=== PATIENT | male | born 1985 | race African-American/Black ===

== ENCOUNTER 2021-12-18 01:41 | Emergency (ER) | payer MEDICAID, OTHER ==
[~2021-12-18] VITALS: Ht 170.2 cm; Wt 68.5 kg
[2021-12-18] MEDS ORDERED: THIAMINE HCL 100 MG TABLET ONE (02:56)
[2021-12-18] MEDS ORDERED: THIAMINE HCL 100 MG TABLET PO ONE (03:00)
[2021-12-18 03:04] LABS: HEMATOCRIT 42.9 % (36.7-47.1); MEAN CORPUSCULAR HEMOGLOBIN 32.5 uug (23.8-33.4); MEAN CORPUSCULAR VOLUME 91.6 fL (73.0-96.2); PLATELET COUNT (AUTO) 325 K/uL (152-348)
[2021-12-18 03:09] LABS: MAGNESIUM 1.9 mg/dL (1.8-2.4)
[2021-12-18 03:10] LABS: CREATININE 0.9 mg/dL (0.6-1.3); POTASSIUM 3.7 mmol/L (3.5-5.1)
[2021-12-18 03:15] LABS: BILIRUBIN,DIRECT 0.2 mg/dL (0.0-0.2); BILIRUBIN,TOTAL 0.7 mg/dL (0.2-1.0); ETHANOL < 3 MG/DL (0-0); TOTAL PROTEIN, SERUM 7.4 g/dL (6.4-8.2)
[2021-12-18] MEDS ORDERED: PROC10TA29 PO (03:27)
[2021-12-18] MEDS ORDERED: NALT380S2 IM (03:45)
--- NOTE | 2021-12-18 04:00 | NUR ---
Patient given written and verbal discharge instructions. Patient verbalizes understanding of instructions. Patient is ambulatory with steady gait. Refuses offer of senior care placement. Patient given list of available shelters in surrounding area.
[2021-12-18 04:01] VITALS: BP 123/47
== END 2021-12-18 04:02 | disposition home or self-care (01) ==
LOC: ER 01:48
DX: F10.10 Alcohol abuse, uncomplicated (principal); Y90.0 Blood alcohol level of less than 20 mg/100 ml; K22.6 Gastro-esophageal laceration-hemorrhage syndrome; Z59.00 Homelessness unspecified; F19.10 Other psychoactive substance abuse, uncomplicated
CPT/HCPCS: 36415; 83690; 83735; 85025; A4663; G0480

== ENCOUNTER 2021-12-20 22:45 | Emergency (ER) | payer MEDICAID, OTHER ==
[~2021-12-20] VITALS: Ht 172.7 cm; Wt 70.3 kg
[~2021-12-20 22:45] MED LIST: NALT380S2 IM; PROC10TA29 PO
--- NOTE | 2021-12-21 02:30 | NUR ---
Dr. Sheriff evaluating pt at bedside.
--- NOTE | 2021-12-21 06:01 | NUR ---
Pt resting in bed comfortably, no s/s of distress at this time.
--- NOTE | 2021-12-21 08:24 | NUR ---
Called social sciences professor to evaluate patient.
--- NOTE | 2021-12-21 08:32 | NUR ---
casino gaming workerGris, at the bedside.
--- NOTE | 2021-12-21 09:07 | NUR ---
Urine sent to lab.
[2021-12-21 09:13] LABS: HEMATOCRIT 43.9 % (36.7-47.1); MEAN CORPUSCULAR HEMOGLOBIN 33.1 uug (23.8-33.4); MEAN CORPUSCULAR VOLUME 91.9 fL (73.0-96.2); PLATELET COUNT (AUTO) 339 K/uL (152-348)
[2021-12-21 09:20] LABS: CARBON DIOXIDE 33 mmol/L (21-32); CHLORIDE 102 mmol/L (98-107); CREATININE 0.8 mg/dL (0.6-1.3); GLUCOSE 93 mg/dL (74-106); UREA NITROGEN, BLOOD 10 mg/dL (7-18)
[2021-12-21 09:26] LABS: ACETAMINOPHEN < 2.0 ug/mL (10-30); ALANINE AMINOTRANSFERASE 29 U/L (16-63); ALKALINE PHOSPHATASE 66 U/L (50-136); ASPARTATE AMINOTRANSFERASE 30 U/L (15-37); BILIRUBIN,DIRECT 0.3 mg/dL (0.0-0.2); BILIRUBIN,TOTAL 0.7 mg/dL (0.2-1.0); ETHANOL < 3 MG/DL (0-0); TOTAL PROTEIN, SERUM 7.6 g/dL (6.4-8.2)
[2021-12-21 09:42] LABS: *AMPHETAMINE, URINE POSITIVE (NEGATIVE); *CANNABINOID, URINE POSITIVE (NEGATIVE); *COCCAINE, URINE NEGATIVE (NEGATIVE); *OPIATE, URINE NEGATIVE (NEGATIVE); *PHENCYCLIDINE SCREEN,URINE NEGATIVE (NEGATIVE)
[2021-12-21 10:44] VITALS: BP 126/93
--- NOTE | 2021-12-21 10:45 | NUR ---
Patient discharged to home in stable condition. Written and verbal after care instructions given. Patient verbalizes understanding of instructions. Stressed follow up or return to ER for worsening s/s.
--- NOTE | 2021-12-21 14:17 | NUR ---
Social work consult was requested for a homeless patient in the emergency room for resources. Patient is 36-year-old male admitted to the hospital for alcohol abuse. Patient is alert and oriented X4. Patient presents with anxious mood and congruent affect. Patient presents with poor judgement and insight. Patient states his primary contact is his mother, Josette ([phone]) and she is currently living in [place], [place]. Patient stated he has been homeless since August and has been living in [place]. TAVARES gave the patient resources for [facility] [place] [address] [place] [address] ([phone]) and [facility] [address] [facility] [address] ([phone]). TAVARES gave resources for [employer] [address] [facility] [address]. Resources were placed in the chart. Homeless waiver was signed and given to the patient and a copy was placed in the chart. Patient states that he is currently working for [employer]. Patient states that he has a history of alcohol abuse. The toxicology report is positive for amphetamine and cannabinoids. TAVARES gave the patient referrals and resources for substance use from [facility] [address] [facility] [address] ([phone]), [facility] [address] [facility] [address] ([phone]), and [facility] [address] [place] [address] ([phone]). Resources were placed in the chart. Patient states he has a history of depression. Patient states he has a history of passive suicidal ideation. Patient denies homicidal ideation. TAVARES provided resources for [facility] Mental [facility] [address] [place] [address] ([phone]) and were placed in the cart. TAVARES provided emotional support and validation when speaking with the patient. Patient states he will discharge to a local alf. TAVARES provided the patient a TAP card for discharge
== END 2021-12-21 10:46 | disposition home or self-care (01) ==
LOC: ER 22:47
DX: F15.10 Other stimulant abuse, uncomplicated (principal); Z59.00 Homelessness unspecified; F10.20 Alcohol dependence, uncomplicated
CPT/HCPCS: 36415; 85025; A4663; G0480

== ENCOUNTER 2021-12-25 17:45 | Emergency (ER) | payer MEDICAID ==
[~2021-12-25] VITALS: Ht 165.1 cm; Wt 79.4 kg
[2021-12-26 05:35] LABS: HEMATOCRIT 41.2 % (36.7-47.1); MEAN CORPUSCULAR HEMOGLOBIN 32.5 uug (23.8-33.4); MEAN CORPUSCULAR VOLUME 91.2 fL (73.0-96.2); PLATELET COUNT (AUTO) 300 K/uL (152-348)
[2021-12-26 05:43] LABS: CARBON DIOXIDE 30 mmol/L (21-32); CHLORIDE 103 mmol/L (98-107); CREATININE 0.8 mg/dL (0.6-1.3); GLUCOSE 92 mg/dL (74-106); POTASSIUM 3.9 mmol/L (3.5-5.1); UREA NITROGEN, BLOOD 11 mg/dL (7-18)
[2021-12-26 05:57] LABS: ALANINE AMINOTRANSFERASE 36 U/L (16-63); ALKALINE PHOSPHATASE 68 U/L (50-136); ASPARTATE AMINOTRANSFERASE 64 U/L (15-37); BILIRUBIN,DIRECT 0.4 mg/dL (0.0-0.2); TOTAL PROTEIN, SERUM 7.1 g/dL (6.4-8.2)
[2021-12-26 05:59] LABS: ACETAMINOPHEN < 2.0 ug/mL (10-30)
[2021-12-26 05:59] LABS: *AMPHETAMINE, URINE NEGATIVE (NEGATIVE); *CANNABINOID, URINE POSITIVE (NEGATIVE); *COCCAINE, URINE NEGATIVE (NEGATIVE); *OPIATE, URINE NEGATIVE (NEGATIVE); *PHENCYCLIDINE SCREEN,URINE NEGATIVE (NEGATIVE)
[2021-12-26 06:12] LABS: ETHANOL < 3 MG/DL (0-0)
--- NOTE | 2021-12-26 15:54 | NUR ---
Social work consult was requested for a homeless patient in the emergency room for resources. Patient is 36-year-old black male. Patient is alert and oriented X4. Patient presents with euthymic mood and full range of affect. Patient presents with poor judgement and insight. Patient states his primary contact is his mother, Josette ([phone]) and she is currently living in [place], [place]. Patient stated he has been homeless since August and has been living in [place]. TAVARES provided the patient resources and gave him the information for [facility] [place] [address] [place] [address] ([phone]) and [facility] [address] [facility] [address] ([phone]). TAVARES gave resources for [facility] [address] [facility] [address]. Resources were placed in the chart. Homeless waiver was signed and given to the patient and a copy was placed in the chart. Patient states that he is currently working for [employer]. TAVARES provided the patient employment resources for [employer] [facility] [facility] [address] [facility], [address], [employer] [address] [facility], [address] and [facility] [address] [facility] [address], [place], [address]. Patient states that he has a history of alcohol abuse. TAVARES provided the patient resources and referrals for substance use from [facility] [address] [facility] [address] ([phone]), [facility] [address] [facility] [address] ([phone]), and [facility] [address] [facility] [address] ([phone]). The toxicology screen is positive for cannabinoids. Resources were placed in the chart. Patient states he has a history of depression. Patient denies current suicidal or homicidal ideation. TAVARES provided resources for [facility] [address] [place] [address] ([phone]) and were placed in the chart. SW provided emotional support and validation when speaking with the patient. Patient states he was going to call [address] [address] ([phone]). Patient states he will discharge to a local long term or treatment center. SW provided the patient a TAP card for discharge.
== END 2021-12-26 09:19 | disposition home or self-care (01) ==
LOC: ER 17:47
DX: R45.850 Homicidal ideations (principal); F10.10 Alcohol abuse, uncomplicated; Y90.0 Blood alcohol level of less than 20 mg/100 ml; Z59.00 Homelessness unspecified; F12.10 Cannabis abuse, uncomplicated; Z20.822 Contact with and (suspected) exposure to COVID-19
CPT/HCPCS: 36415; 85025; A4663; G0480

== ENCOUNTER 2022-01-02 17:50 | Emergency (ER) | payer OTHER ==
[~2022-01-02] VITALS: Ht 170.2 cm; Wt 70.3 kg
[2022-01-02] MEDS ORDERED: LORAZEPAM 0.5 MG TABLET PO ONE (18:15)
--- NOTE | 2022-01-02 18:32 | NUR ---
Pt changed into patient gown. Belongings gathered and labeled. Pt denies auditory and visual hallucinations, endorses possible SI (no plan) and HI (nothing specific).
[2022-01-02 18:38] LABS: HEMATOCRIT 42.1 % (36.7-47.1); MEAN CORPUSCULAR HEMOGLOBIN 33.2 uug (23.8-33.4); MEAN CORPUSCULAR VOLUME 92.4 fL (73.0-96.2); PLATELET COUNT (AUTO) 269 K/uL (152-348)
[2022-01-02 18:46] LABS: CARBON DIOXIDE 29 mmol/L (21-32); CHLORIDE 96 mmol/L (98-107); CREATININE 0.9 mg/dL (0.6-1.3); GLUCOSE 112 mg/dL (74-106); POTASSIUM 3.9 mmol/L (3.5-5.1); UREA NITROGEN, BLOOD 13 mg/dL (7-18)
[2022-01-02 18:52] LABS: ALANINE AMINOTRANSFERASE 36 U/L (16-63); ALKALINE PHOSPHATASE 66 U/L (50-136); ASPARTATE AMINOTRANSFERASE 37 U/L (15-37); BILIRUBIN,DIRECT 0.2 mg/dL (0.0-0.2); BILIRUBIN,TOTAL 0.5 mg/dL (0.2-1.0); TOTAL PROTEIN, SERUM 7.8 g/dL (6.4-8.2)
[2022-01-02 18:53] LABS: ACETAMINOPHEN < 2.0 ug/mL (10-30)
[2022-01-02 18:54] LABS: ETHANOL 4 MG/DL (0-0)
[2022-01-02] MEDS ORDERED: LORAZEPAM 0.5 MG TABLET ONE (19:09)
[2022-01-02 20:41] LABS: *BILIRUBIN,URIN NEGATIVE (NEGATIVE); *BLOOD, URINE NEGATIVE (NEGATIVE); *CLARITY,URINE CLEAR (CLEAR); *COLOR,URINE YELLOW (YELLOW); *KETONES,URINE NEGATIVE (NEGATIVE); *UROBILINOGEN,URINE 0.2 E.U./dl (NORMAL); LEUKOCYTE ESTERASE ,URINE NEGATIVE (NEGATIVE); NITRITE, URINE NEGATIVE (NEGATIVE); PH,URINE 6.5 (5.0-8.0); UGLUCOSE NEGATIVE (NEGATIVE)
--- NOTE | 2022-01-02 21:00 | NUR ---
Patient ate 100% of meal tray provided with snacks.
[2022-01-02 21:17] LABS: *AMPHETAMINE, URINE NEGATIVE (NEGATIVE); *CANNABINOID, URINE POSITIVE (NEGATIVE); *COCCAINE, URINE NEGATIVE (NEGATIVE); *OPIATE, URINE NEGATIVE (NEGATIVE); *PHENCYCLIDINE SCREEN,URINE NEGATIVE (NEGATIVE)
--- NOTE | 2022-01-02 22:39 | NUR ---
Medically cleared by DR Hernandes. Called Wilder Bauman from PET TEAM to eval patient. ETA is 40mins.
--- NOTE | 2022-01-02 23:10 | NUR ---
Wilder from PET TEAM here to eval patient.
--- NOTE | 2022-01-02 23:50 | NUR ---
Faxed facesheet and clinicals to [facility] for request for voluntary admission. Faxe # . .
--- NOTE | 2022-01-03 05:06 | NUR ---
Mona from [facility] called back with transfer info. [facility]. Accepting MD is Dr Mckeon, call for report number is . Mona states report will be accepted at 0900 today and can send patient at noon today to [facility].
--- NOTE | 2022-01-03 08:15 | NUR ---
Pt resting in bed, no complaints, no distress noted. Pt given breakfast tray.
--- NOTE | 2022-01-03 09:32 | NUR ---
Called report to OBDULIO Castellanos. Transport ETA: [phone] via [facility]. Jasmin gandhi.
--- NOTE | 2022-01-03 09:51 | NUR ---
Pt. sleeping in bed, no distress noted.
--- NOTE | 2022-01-03 10:37 | NUR ---
Gave rn internal medicine pt chart and report. Gave crew pt belongings. Pt transported to [facility] [place].
== END 2022-01-03 10:42 ==
LOC: ER 17:53
DX: R45.851 Suicidal ideations (principal); F10.10 Alcohol abuse, uncomplicated; Y90.0 Blood alcohol level of less than 20 mg/100 ml; Z20.822 Contact with and (suspected) exposure to COVID-19; F20.9 Schizophrenia, unspecified; F19.10 Other psychoactive substance abuse, uncomplicated
CPT/HCPCS: 36415; 85025; A4663; G0480

== ENCOUNTER 2022-02-22 22:46 | Emergency (ER) | payer MEDICAID ==
[~2022-02-22] VITALS: Ht 170.2 cm; Wt 68.0 kg
[~2022-02-22 22:46] MED LIST changes: -PROC10TA29 PO
--- NOTE | 2022-02-23 00:30 | NUR ---
Jr jackson in [facility] - 02/23/22 at 0253 by [id number] PATIENT WAS JUST CALLED TO BE TRIAGED AT THIS TIME DUE TO NO BEDS AVAILABLE IN THE ER AND HIGH ACUITY IN THE ER, BUT PATIENT WAS NOT PRESENT IN THE WAITING ROOM OR OUTSIDE OF ER.
--- NOTE | 2022-02-23 01:20 | NUR ---
PATIENT WAS CALLED TO BE TRIAGED BUT WAS NOT PRESENT IN THE WAITING ROOM OR OUTSIDE OF ER. PATIENT WAS NOT TRIAGED OR SEEN BY ERMD.
--- NOTE | 2022-02-23 07:51 | NUR ---
PATIENT STATES HE "WANTS HELP FOR MY ALCOHOLISM AND LIFE SITUATION" DENIES SUICIDAL IDEATION OR THOUGHTS. STATES HE IS "READY" FOR REHAB.
--- NOTE | 2022-02-23 08:16 | NUR ---
ELIGIO, TAVARES, HERE FOR EVAL.
--- NOTE | 2022-02-23 08:58 | NUR ---
Social Work consult was requested for a patient in the emergency room for mental health, homeless and substance abuse resources. Patient is a 36-year-old black male. Patient presents with euthymic mood and a full range of affect. Patient presents with poor insight and judgement. Patient states he does not have a primary contact. Patient states he is unemployed. Patient states he is currently homeless, and TAVARES provided the patient with homeless resources for [facility] [place] [address] [place] [address] ([phone]) and [facility] [address] [facility] [address] ([phone]). TAVARES gave resources for [address] [address]. Homeless waiver was signed and was placed in the chart. Patient states he has a history of alcohol abuse. There is no toxicology report. TAVARES provided the patient with substance abuse resources for [address] [address] ([phone]), [facility] [address] [facility] [address] ([phone]), and [address] [address] ([phone]). Patient appeared motivated for treatment and stated he was open to going to [facility]. TAVARES provided the patient with a TAP card and directions to [facility]. Patient states he has a history of depression and anxiety. Patient denies current suicidal or homicidal ideation. Patient states his plan for discharge is to go to [address] [address] ([phone]).
--- NOTE | 2022-02-23 09:15 | NUR ---
patient ate breakfast. he ambulates with steady gait. He has his TAP card and directions to [facility] which is where he is going now .
[2022-02-23 09:18] VITALS: BP 119/72
== END 2022-02-23 09:19 | disposition home or self-care (01) ==
LOC: ER 22:46
DX: F10.10 Alcohol abuse, uncomplicated (principal); F32.A Depression, unspecified; F41.9 Anxiety disorder, unspecified; F19.10 Other psychoactive substance abuse, uncomplicated; F20.9 Schizophrenia, unspecified
CPT/HCPCS: A4663

== ENCOUNTER 2022-02-23 23:40 | Emergency (ER) | payer MEDICAID ==
[~2022-02-23] VITALS: Ht 170.2 cm; Wt 68.0 kg
--- NOTE | 2022-02-24 06:32 | NUR ---
Dr. Hernandez at bedside for MSE.
--- NOTE | 2022-02-24 06:42 | NUR ---
Patient given written and verbal discharge instructions. Patient verbalizes understanding of instructions. Patient is ambulatory with steady gait. Refuses offer of [facility] placement. Patient given list of available shelters in surrounding area.
[2022-02-24 06:49] VITALS: BP 130/74
== END 2022-02-24 06:49 | disposition home or self-care (01) ==
LOC: ER 23:40
DX: Z00.00 Encounter for general adult medical examination without abnormal findings (principal); Z59.00 Homelessness unspecified; F10.10 Alcohol abuse, uncomplicated; F12.10 Cannabis abuse, uncomplicated; F20.9 Schizophrenia, unspecified
CPT/HCPCS: A4663

== ENCOUNTER 2022-03-15 22:01 | Emergency (ER) | payer MEDICAID ==
[~2022-03-15] VITALS: Ht 170.2 cm; Wt 79.4 kg
--- NOTE | 2022-03-15 22:25 | NUR ---
Patient walked to the ER with steady gait. NAD noted
[2022-03-15 23:25] LABS: HEMATOCRIT 38.8 % (36.7-47.1); MEAN CORPUSCULAR HEMOGLOBIN 33.9 uug (23.8-33.4); MEAN CORPUSCULAR VOLUME 94.4 fL (73.0-96.2); PLATELET COUNT (AUTO) 343 K/uL (152-348)
[2022-03-15 23:33] LABS: POTASSIUM 3.4 mmol/L (3.5-5.1)
[2022-03-15 23:39] LABS: BILIRUBIN,DIRECT 0.3 mg/dL (0.0-0.2); BILIRUBIN,TOTAL 0.6 mg/dL (0.2-1.0); TOTAL PROTEIN, SERUM 6.9 g/dL (6.4-8.2)
[2022-03-15] MEDS ORDERED: POTASSIUM BICARBONATE/CIT AC 25 MEQ TABLET.EFF ONE (23:57)
[2022-03-15] MEDS ORDERED: THIAMINE HCL 100 MG TABLET ONE (23:57)
[2022-03-16] MEDS ORDERED: POTASSIUM BICARBONATE/CIT AC 25 MEQ TABLET.EFF PO ONE
[2022-03-16] MEDS ORDERED: THIAMINE HCL 100 MG TABLET PO ONE
[2022-03-16] MEDS ORDERED: CYANOCOBALAMIN 1000 MCG/ML VIAL IM ONE (00:15)
[2022-03-16] MEDS ORDERED: POTA10TA21 PO (00:34)
[2022-03-16] MEDS ORDERED: CYAN-10 IJ (00:34)
[2022-03-16] MEDS ORDERED: SYRI-29 MC (00:37)
[2022-03-16] MEDS ORDERED: CYANOCOBALAMIN 1000 MCG/ML VIAL ONE (00:44)
--- NOTE | 2022-03-16 00:48 | NUR ---
Patient given written and verbal discharge instructions. Patient verbalizes understanding of instructions. Patient is ambulatory with steady gait. Refuses offer of senior living placement. Patient given list of available shelters in surrounding area. Patient is a/ox4, NAD noted. Patient is able to walk with steady gait
[2022-03-16 00:57] VITALS: BP 115/67
== END 2022-03-16 00:57 | disposition home or self-care (01) ==
LOC: ER 22:01
DX: E53.8 Deficiency of other specified B group vitamins (principal); G63 Polyneuropathy in diseases classified elsewhere; E87.6 Hypokalemia; F10.20 Alcohol dependence, uncomplicated; Z59.00 Homelessness unspecified; F19.10 Other psychoactive substance abuse, uncomplicated; F20.9 Schizophrenia, unspecified
CPT/HCPCS: 80076; 80048; 82607; 85025; 36415; 99283; 96372; J3420; A4663

== ENCOUNTER 2022-05-16 04:10 | Emergency (ER) | payer MEDICAID ==
[~2022-05-16] VITALS: Ht 170.2 cm; Wt 79.4 kg
[~2022-05-16 04:10] MED LIST changes: +CYAN-10 IJ; +POTA10TA21 PO; +SYRI-29 MC
--- NOTE | 2022-05-16 06:40 | NUR ---
Dr Hernandes into eval patient.
[2022-05-16] MEDS ORDERED: KETOROLAC TROMETHAMINE 15 MG INJ IM ONE (07:00)
[2022-05-16] MEDS ORDERED: IBUP-1955 PO (07:04)
[2022-05-16] MEDS ORDERED: KETOROLAC TROMETHAMINE 15 MG INJ ONE (07:08)
--- NOTE | 2022-05-16 08:30 | NUR ---
Social Work consult was requested for a patient in the emergency room for homeless resources. Patient is a 36-year-old black male. Patient presents with anxious mood and congruent affect. Patient presents with poor insight and judgement. Patient states he does not have a primary contact. 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 Patient states he is currently homeless, and TAVARES provided the patient with homeless resources for [facility] [place] [address] [place] [address] ([phone]) and [facility] [address] [facility] [address] ([phone]). TAVARES gave resources for [facility] [address] [place] [address]. Homeless waiver was signed and was placed in the chart. Patient states he has a history of alcohol abuse. There is no toxicology report. TAVARES provided the patient with substance abuse resources for [facility] [address] [facility] [place] [address] ([phone]), [facility] [address] [facility] [address] ([phone]), and [facility] [address] [place] [address] ([phone]). Patient appeared unmotivated for treatment. Patient states he has a history of depression and anxiety, and TAVARES provided the patient with the mental health resource for [facility] Mental [facility] [address] [place] [address] ([phone]). Patient denies current suicidal or homicidal ideation. TAVARES provided the patient with a TAP card and patient states he will follow up with making his own arrangements for a living arrangement using the resources provided.
--- NOTE | 2022-05-16 08:50 | NUR ---
Patient discharged to home in stable condition. Written and verbal after care instructions given. Patient verbalizes understanding of instructions. Stressed follow up or return to ER for worsening s/s. Pt was seen by Gris (criminal justice social worker) prior to d/c and given referrals and a TAP card for the bus. Pt ambulated out of ER with steady gait.
== END 2022-05-16 08:53 | disposition home or self-care (01) ==
LOC: ER 04:16
DX: S89.91XA Unspecified injury of right lower leg, initial encounter (principal); X58.XXXA Exposure to other specified factors, initial encounter; Y92.89 Other specified places as the place of occurrence of the external cause; Z59.00 Homelessness unspecified; F20.9 Schizophrenia, unspecified; F41.9 Anxiety disorder, unspecified; F32.A Depression, unspecified
CPT/HCPCS: 99283; 73564; 96372; J1885; A4663

== ENCOUNTER 2022-05-17 21:27 | Emergency (ER) | payer MEDICAID ==
[~2022-05-17] VITALS: Ht 170.2 cm; Wt 72.6 kg
[~2022-05-17 21:27] MED LIST changes: +IBUP-1955 PO
[2022-05-18 00:36] LABS: *BILIRUBIN,URIN NEGATIVE (NEGATIVE); *BLOOD, URINE NEGATIVE (NEGATIVE); *CLARITY,URINE CLEAR (CLEAR); *COLOR,URINE LIGHT YELLOW (YELLOW); *KETONES,URINE NEGATIVE (NEGATIVE); *UROBILINOGEN,URINE 0.2 E.U./dl (NORMAL); LEUKOCYTE ESTERASE ,URINE NEGATIVE (NEGATIVE); NITRITE, URINE NEGATIVE (NEGATIVE); PH,URINE 5.5 (5.0-8.0); UGLUCOSE NEGATIVE (NEGATIVE)
[2022-05-18 00:42] LABS: HEMATOCRIT 37.4 % (36.7-47.1); MEAN CORPUSCULAR HEMOGLOBIN 33.8 uug (23.8-33.4); MEAN CORPUSCULAR VOLUME 94.3 fL (73.0-96.2); PLATELET COUNT (AUTO) 342 K/uL (152-348)
[2022-05-18 00:51] LABS: CARBON DIOXIDE 29 mmol/L (21-32); CHLORIDE 104 mmol/L (98-107); CREATININE 0.8 mg/dL (0.6-1.3); GLUCOSE 162 mg/dL (74-106); POTASSIUM 3.7 mmol/L (3.5-5.1); UREA NITROGEN, BLOOD 8 mg/dL (7-18)
[2022-05-18 00:53] LABS: ETHANOL 150 MG/DL (0-0)
[2022-05-18 00:58] LABS: ALANINE AMINOTRANSFERASE 27 U/L (16-63); ALKALINE PHOSPHATASE 88 U/L (50-136); ASPARTATE AMINOTRANSFERASE 21 U/L (15-37); BILIRUBIN,DIRECT 0.2 mg/dL (0.0-0.2); BILIRUBIN,TOTAL 0.3 mg/dL (0.2-1.0)
[2022-05-18 00:59] LABS: ACETAMINOPHEN < 10.0 ug/mL (10-30)
[2022-05-18 01:17] LABS: *AMPHETAMINE, URINE NEGATIVE (NEGATIVE); *CANNABINOID, URINE POSITIVE (NEGATIVE); *COCCAINE, URINE NEGATIVE (NEGATIVE); *OPIATE, URINE NEGATIVE (NEGATIVE); *PHENCYCLIDINE SCREEN,URINE NEGATIVE (NEGATIVE)
--- NOTE | 2022-05-18 01:45 | NUR ---
Medically cleared by Dr Hernandes.
--- NOTE | 2022-05-18 03:00 | NUR ---
Called [phone] and spoke to intake who requested facesheet and clinical to be faxed to .
--- NOTE | 2022-05-18 04:00 | NUR ---
Patient sleeping on gurny with no distress noted.
--- NOTE | 2022-05-18 05:04 | NUR ---
Called [facility] and was informed by Mona who states they are not able to accept patient because they are not contracted with patient's insurance.
--- NOTE | 2022-05-18 07:45 | NUR ---
Received patient sleeping in room 5 with no s/s of distress noted at this time.
--- NOTE | 2022-05-18 10:04 | NUR ---
Social Work consult was requested for a patient in the emergency room for homeless and mental health resources. Patient is a 36-year-old black male. Patient presents with anxious mood and congruent affect. Patient appears lethargic. Patient states he does not have a primary contact. Patient states he is currently homeless, and TAVARES provided the patient with homeless resources for [facility] [place] [address] [place] [address] ([phone]) and [facility] [address] [facility] [address] ([phone]). TAVARES gave resources for [facility] [address] [facility] [address]. Homeless waiver was signed and placed in the chart. Patient states he has a history of alcohol abuse. The patients alcohol level was 150 and the toxicology report was positive for cannabinoids. TAVARES provided the patient with substance abuse resources for [facility] [address] [facility] [address] ([phone]), [facility] [address] [facility] [address] ([phone]), and [facility] [address] [facility] [address] ([phone]). Patient appeared unmotivated for treatment. Patient states he has a history of depression and anxiety, and TAVARES provided the patient with the mental health resource for [facility] [address] [facility] [place] [address] ([phone]). Patient denies current suicidal or homicidal ideation. TAVARES provided the patient with a TAP card and patient states he will follow up with making his own arrangements for a living arrangement using the resources provided.
--- NOTE | 2022-05-18 10:10 | NUR ---
Patient discharged in stable condition. Written and verbal after care instructions given. Patient verbalizes understanding of instructions. Pt was seen by the nursing home social worker, given referrals and a TAP card for the bus. Pt ambulated out of ER.
== END 2022-05-18 10:14 | disposition home or self-care (01) ==
LOC: ER 21:27
DX: F32.A Depression, unspecified (principal); F20.9 Schizophrenia, unspecified; F19.10 Other psychoactive substance abuse, uncomplicated; Z20.822 Contact with and (suspected) exposure to COVID-19; F10.10 Alcohol abuse, uncomplicated; Y90.6 Blood alcohol level of 120-199 mg/100 ml; Z59.00 Homelessness unspecified
CPT/HCPCS: 36415; 85025; A4663; G0480

== ENCOUNTER 2022-05-19 22:18 | Emergency (ER) | payer MEDICAID ==
[~2022-05-19] VITALS: Ht 170.2 cm; Wt 72.6 kg
--- NOTE | 2022-05-19 22:25 | NUR ---
Dr. Gonzalez at bedside for MSE.
[2022-05-19 22:55] LABS: MEAN CORPUSCULAR HEMOGLOBIN 32.5 uug (23.8-33.4); MEAN CORPUSCULAR VOLUME 94.5 fL (73.0-96.2); PLATELET COUNT (AUTO) 368 K/uL (152-348)
[2022-05-19] MEDS ORDERED: THIAMINE HCL 100 MG TABLET PO ONE (23:00)
[2022-05-19 23:03] LABS: CARBON DIOXIDE 30 mmol/L (21-32); CHLORIDE 100 mmol/L (98-107); CREATININE 0.8 mg/dL (0.6-1.3); GLUCOSE 111 mg/dL (74-106); POTASSIUM 3.8 mmol/L (3.5-5.1); UREA NITROGEN, BLOOD 14 mg/dL (7-18)
[2022-05-19 23:08] LABS: ETHANOL 210 MG/DL (0-0)
[2022-05-19] MEDS ORDERED: THIAMINE HCL 100 MG TABLET ONE (23:18)
[2022-05-19 23:34] LABS: MAGNESIUM 2.1 mg/dL (1.8-2.4)
[2022-05-20] MEDS ORDERED: CHLORDIAZEPOXIDE HCL 25 MG CAPSULE PO ONE
[2022-05-20] MEDS ORDERED: CYANOCOBALAMIN 1000 MCG/ML VIAL IM ONE
[2022-05-20] MEDS ORDERED: CHLORDIAZEPOXIDE HCL 25 MG CAPSULE ONE (00:05)
[2022-05-20] MEDS ORDERED: CYANOCOBALAMIN 1000 MCG/ML VIAL ONE (00:05)
[2022-05-20] MEDS ORDERED: CHLO25CA22 PO (01:37)
--- NOTE | 2022-05-20 06:15 | NUR ---
Patient given written and verbal discharge instructions. Patient verbalizes understanding of instructions. Patient is ambulatory with steady gait. Refuses offer of [facility] placement. Patient given list of available shelters in surrounding area. Pt out of ER with steady gait, no acute signs of distress, VSS, all belongings taken, provided with list of substance abuse resources and shelters, refuses all other services at this time.
[2022-05-20 06:17] VITALS: BP 130/75
== END 2022-05-20 06:18 | disposition home or self-care (01) ==
LOC: ER 22:22
DX: F10.20 Alcohol dependence, uncomplicated (principal); Y90.7 Blood alcohol level of 200-239 mg/100 ml; E53.8 Deficiency of other specified B group vitamins; Z59.02 Unsheltered homelessness; F20.9 Schizophrenia, unspecified; F19.10 Other psychoactive substance abuse, uncomplicated
CPT/HCPCS: 80048; 82607; 83735; 85025; 36415; 99283; 80320; 96372; J3420; A4663; G0480

== ENCOUNTER 2022-05-25 18:45 | Emergency (ER) | END 2022-05-25 21:33 | disposition home or self-care (01) | DX: R11.2 Nausea with vomiting, unspecified (principal); F10.20 Alcohol dependence, uncomplicated; E53.8 Deficiency of other specified B group vitamins; G63 Polyneuropathy in diseases classified elsewhere; Y90.0 Blood alcohol level of less than 20 mg/100 ml; Z90.49 Acquired absence of other specified parts of digestive tract; R00.0 Tachycardia, unspecified; Z59.00 Homelessness unspecified; F20.9 Schizophrenia, unspecified; F32.A Depression, unspecified; F41.9 Anxiety disorder, unspecified; F19.10 Other psychoactive substance abuse, uncomplicated | CPT/HCPCS: 80048; 83690; 85025; 36415; 99284; 96361; 96374; 96372; 80320; J3420; J0780; J7040 ==

== ENCOUNTER 2022-05-26 22:15 | Emergency (ER) | END 2022-05-26 23:01 | disposition home or self-care (01) | DX: B35.3 Tinea pedis (principal); Z59.00 Homelessness unspecified; F10.10 Alcohol abuse, uncomplicated; F32.A Depression, unspecified; Z79.899 Other long term (current) drug therapy ==

== ENCOUNTER 2022-06-02 22:51 | Emergency (ER) | payer MEDICAID ==
[~2022-06-02] VITALS: Ht 170.2 cm; Wt 72.6 kg
[~2022-06-02 22:51] MED LIST changes: +CHLO25CA22 PO; +CLOT12CR TP; +FLUC200T PO; +HYDR-3980 PO; +PROC10TA29 PO
[2022-06-02] MEDS ORDERED: CYANOCOBALAMIN 1000 MCG/ML VIAL IM ONE (23:30)
--- NOTE | 2022-06-02 23:32 | NUR ---
Patient resting in bed eating, no s/s of any distress noted. informed of plan of care, awaiting MD exam. will continue to monitor.
[2022-06-02] MEDS ORDERED: CYANOCOBALAMIN 1000 MCG/ML VIAL ONE (23:36)
--- NOTE | 2022-06-02 23:41 | NUR ---
patient medicated as per order, lab at bedside at this time for draw.
--- NOTE | 2022-06-02 23:47 | NUR ---
requested and given blanket and meal.
[2022-06-02 23:59] LABS: MEAN CORPUSCULAR HEMOGLOBIN 32.7 uug (23.8-33.4); PLATELET COUNT (AUTO) 299 K/uL (152-348)
[2022-06-03] LABS: CARBON DIOXIDE 27 mmol/L (21-32); CHLORIDE 102 mmol/L (98-107); CREATININE 0.7 mg/dL (0.6-1.3); GLUCOSE 117 mg/dL (74-106); POTASSIUM 3.7 mmol/L (3.5-5.1); UREA NITROGEN, BLOOD 7 mg/dL (7-18)
[2022-06-03 00:12] LABS: *BILIRUBIN,URIN NEGATIVE (NEGATIVE); *BLOOD, URINE NEGATIVE (NEGATIVE); *CLARITY,URINE CLEAR (CLEAR); *COLOR,URINE YELLOW (YELLOW); *KETONES,URINE TRACE (NEGATIVE); *UROBILINOGEN,URINE 0.2 E.U./dl (NORMAL); LEUKOCYTE ESTERASE ,URINE NEGATIVE (NEGATIVE); NITRITE, URINE NEGATIVE (NEGATIVE); PH,URINE 5.5 (5.0-8.0); UGLUCOSE NEGATIVE (NEGATIVE)
[2022-06-03 00:13] LABS: ACETAMINOPHEN < 10.0 ug/mL (10-30); ALANINE AMINOTRANSFERASE 38 U/L (16-63); ALKALINE PHOSPHATASE 106 U/L (50-136); ASPARTATE AMINOTRANSFERASE 32 U/L (15-37); BILIRUBIN,DIRECT 0.3 mg/dL (0.0-0.2); BILIRUBIN,TOTAL 0.4 mg/dL (0.2-1.0); TOTAL PROTEIN, SERUM 7.3 g/dL (6.4-8.2)
[2022-06-03 00:17] LABS: *AMPHETAMINE, URINE POSITIVE (NEGATIVE); *CANNABINOID, URINE POSITIVE (NEGATIVE); *COCCAINE, URINE NEGATIVE (NEGATIVE); *OPIATE, URINE NEGATIVE (NEGATIVE); *PHENCYCLIDINE SCREEN,URINE NEGATIVE (NEGATIVE)
[2022-06-03 00:44] LABS: ETHANOL 116 MG/DL (0-0)
--- NOTE | 2022-06-03 00:48 | NUR ---
Lab called spoke to Jass, stated that ethanol level was 116. made aware.
[2022-06-03 01:17] LABS: URIC ACID CRYSTALS,URINE MANY /HPF (NONE SEEN)
[2022-06-03 01:20] LABS: BACTERIA,URINE NONE SEEN /HPF (NONE SEEN); RBC,URINE NONE SEEN /HPF (0-3); SQUAMOUS EPITHELIAL CELL,UR FEW /HPF (NONE SEEN); WBC,URINE NONE SEEN /HPF (0-3)
--- NOTE | 2022-06-03 01:38 | NUR ---
Patient sleeping at this time, no s/s of any pain or discomfort noted.
--- NOTE | 2022-06-03 03:05 | NUR ---
Patient continues to sleep without any s/s of distress noted.
--- NOTE | 2022-06-03 03:59 | NUR ---
patient continues to rest, easy to arouse, no voiced c/o at this time. No change noted in primar assessment.
--- NOTE | 2022-06-03 05:50 | NUR ---
lab at bedside.
[2022-06-03 06:20] LABS: ETHANOL < 3 MG/DL (0-0)
--- NOTE | 2022-06-03 07:12 | NUR ---
REPORT GIDESIRAE TO ACCEPTING NURSE DONNELL. PATIENT REMAINS STABLE.
--- NOTE | 2022-06-03 08:50 | NUR ---
Pt states not suecidal and want to be admitted to [facility] hospital.
--- NOTE | 2022-06-03 12:34 | NUR ---
Pt accepted at [facility] BY: Dr. Shah Report to: [phone] ETA: Pick[facility] -- 1400
--- NOTE | 2022-06-03 13:24 | NUR ---
Called report to OBDULIO Reyes, at [facility].
== END 2022-06-03 17:15 ==
LOC: ER 22:56
DX: F10.229 Alcohol dependence with intoxication, unspecified (principal); Y90.5 Blood alcohol level of 100-119 mg/100 ml; F19.10 Other psychoactive substance abuse, uncomplicated; Z59.00 Homelessness unspecified; Z20.822 Contact with and (suspected) exposure to COVID-19; Z86.59 Personal history of other mental and behavioral disorders
CPT/HCPCS: 80076; 80048; 81001; 85025; 87426; 36415 ×2; 99285; 96372; 80299; 80320 ×2; 80307; J3420; A4663; G0480

== ENCOUNTER 2022-06-12 22:44 | Emergency (ER) | payer MEDICAID ==
--- NOTE | 2022-06-12 23:00 | NUR ---
Patient was called to be traiged but was not present in the waiting room or outside of ER.
--- NOTE | 2022-06-12 23:45 | NUR ---
Patient was called to be triaged but was not present in the waiting room or outside of ER.
--- NOTE | 2022-06-13 00:30 | NUR ---
Patient was called to be triaged but was not present in the waiting room or outside of ER. PATIENT WAS NOT TRIAGED OR SEEN BY ERMD.
[2022-06-13] MEDS ORDERED: OMEP20CA15 PO (15:28)
[2022-06-13] MEDS ORDERED: ONDA4TAB11 PO (15:28)
== END 2022-06-13 00:30 | disposition left against medical advice (07) ==
LOC: ER 22:44
DX: Z53.21 Procedure and treatment not carried out due to patient leaving prior to being seen by health care provider (principal)

== ENCOUNTER 2022-06-13 03:53 | Emergency (ER) | payer MEDICAID ==
--- NOTE | 2022-06-13 04:00 | NUR ---
Patient was called to be triaged but was not present in the waiting room or outside of ER.
--- NOTE | 2022-06-13 04:27 | NUR ---
Patient was called to be triaged but was not present in the waiting room or outside of ER.
--- NOTE | 2022-06-13 04:35 | NUR ---
Patient was called to be triaged but was not present. PATIENT WAS NOT TRIAGED OR SEEN BY ERMD.
[2022-06-13] MEDS ORDERED: OMEP20CA15 PO (15:28)
[2022-06-13] MEDS ORDERED: ONDA4TAB11 PO (15:28)
== END 2022-06-13 04:36 | disposition left against medical advice (07) ==
LOC: ER 03:54
DX: Z53.21 Procedure and treatment not carried out due to patient leaving prior to being seen by health care provider (principal)

== ENCOUNTER 2022-06-13 13:56 | Emergency (ER) | payer MEDICAID ==
[~2022-06-13] VITALS: Ht 170.2 cm; Wt 72.6 kg
--- NOTE | 2022-06-13 14:09 | NUR ---
patient being seen by ER physician
[2022-06-13] MEDS ORDERED: PANTOPRAZOLE SODIUM 40 MG VIAL IV ONE (14:15)
[2022-06-13] MEDS ORDERED: IV NORMAL SALINE 1000 ML BAG IV ONE (14:15)
[2022-06-13] MEDS ORDERED: METOCLOPRAMIDE HCL 10 MG/2 ML VIAL IV ONE (14:15)
[2022-06-13 14:31] LABS: HEMATOCRIT 43.9 % (36.7-47.1); MEAN CORPUSCULAR HEMOGLOBIN 33.3 uug (23.8-33.4); MEAN CORPUSCULAR VOLUME 93.6 fL (73.0-96.2); PLATELET COUNT (AUTO) 402 K/uL (152-348)
[2022-06-13 14:38] LABS: CARBON DIOXIDE 30 mmol/L (21-32); CHLORIDE 102 mmol/L (98-107); CREATININE 0.8 mg/dL (0.6-1.3); GLUCOSE 103 mg/dL (74-106); UREA NITROGEN, BLOOD 10 mg/dL (7-18)
[2022-06-13 14:44] LABS: ALANINE AMINOTRANSFERASE 49 U/L (16-63); ALKALINE PHOSPHATASE 69 U/L (50-136); ASPARTATE AMINOTRANSFERASE 42 U/L (15-37); BILIRUBIN,DIRECT 0.4 mg/dL (0.0-0.2); BILIRUBIN,TOTAL 0.6 mg/dL (0.2-1.0); LIPASE 80 U/L (73-393); TOTAL PROTEIN, SERUM 8.1 g/dL (6.4-8.2)
[2022-06-13] MEDS ORDERED: ONDA4TAB11 PO (15:28)
[2022-06-13] MEDS ORDERED: OMEP20CA15 PO (15:28)
--- NOTE | 2022-06-13 15:33 | NUR ---
water/ fluid trials for toleration evaluation
--- NOTE | 2022-06-13 16:01 | NUR ---
discharge papers given and signed. IV discontinued
[2022-06-13 16:03] VITALS: BP 117/70
== END 2022-06-13 16:03 | disposition home or self-care (01) ==
LOC: ER 13:56
DX: R11.2 Nausea with vomiting, unspecified (principal); F10.10 Alcohol abuse, uncomplicated; Y90.2 Blood alcohol level of 40-59 mg/100 ml; Z59.00 Homelessness unspecified; Z90.49 Acquired absence of other specified parts of digestive tract
CPT/HCPCS: 80076; 80048; 83690; 85025; 36415; 99284; 96361; 96374; 96375; 80320; J2765; C9113; J7040; G0480

== ENCOUNTER 2022-06-15 21:51 | Emergency (ER) | payer MEDICAID ==
[~2022-06-15] VITALS: Ht 170.2 cm; Wt 72.6 kg
[~2022-06-15 21:51] MED LIST changes: +OMEP20CA15 PO; +ONDA4TAB11 PO
--- NOTE | 2022-06-16 00:28 | NUR ---
COVID specimen sent to the lab
[2022-06-16] MEDS ORDERED: CHLORDIAZEPOXIDE HCL 25 MG CAPSULE PO ONE (00:30)
[2022-06-16] MEDS ORDERED: CHLORDIAZEPOXIDE HCL 25 MG CAPSULE ONE (00:31)
[2022-06-16] MEDS ORDERED: ONDANSETRON ODT 4 MG TAB.RAPDIS ONE (00:34)
[2022-06-16] MEDS ORDERED: ONDANSETRON ODT 4 MG TAB.RAPDIS SL ONE (00:45)
[2022-06-16 00:46] LABS: HEMATOCRIT 42.1 % (36.7-47.1); MEAN CORPUSCULAR HEMOGLOBIN 32.5 uug (23.8-33.4); MEAN CORPUSCULAR VOLUME 93.4 fL (73.0-96.2); PLATELET COUNT (AUTO) 406 K/uL (152-348)
[2022-06-16 00:49] LABS: ETHANOL 33 MG/DL (0-0)
[2022-06-16 00:50] LABS: ALANINE AMINOTRANSFERASE 64 U/L (16-63); ALKALINE PHOSPHATASE 71 U/L (50-136); ASPARTATE AMINOTRANSFERASE 59 U/L (15-37); BILIRUBIN,DIRECT 0.3 mg/dL (0.0-0.2); BILIRUBIN,TOTAL 0.5 mg/dL (0.2-1.0); CARBON DIOXIDE 27 mmol/L (21-32); CHLORIDE 101 mmol/L (98-107); CREATININE 0.8 mg/dL (0.6-1.3); GLUCOSE 71 mg/dL (74-106); POTASSIUM 4.1 mmol/L (3.5-5.1); TOTAL PROTEIN, SERUM 7.6 g/dL (6.4-8.2); UREA NITROGEN, BLOOD 15 mg/dL (7-18)
[2022-06-16 00:51] LABS: ACETAMINOPHEN < 10.0 ug/mL (10-30)
[2022-06-16 00:58] LABS: THYROID STIMULATING HORMONE 3.016 mIU/mL (0.358-3.740)
--- NOTE | 2022-06-16 01:31 | NUR ---
Urine sample sent to the lab.
[2022-06-16 01:36] LABS: *BILIRUBIN,URIN NEGATIVE (NEGATIVE); *BLOOD, URINE NEGATIVE (NEGATIVE); *CLARITY,URINE CLEAR (CLEAR); *COLOR,URINE YELLOW (YELLOW); *KETONES,URINE NEGATIVE (NEGATIVE); *UROBILINOGEN,URINE 0.2 E.U./dl (NORMAL); LEUKOCYTE ESTERASE ,URINE NEGATIVE (NEGATIVE); NITRITE, URINE NEGATIVE (NEGATIVE); PH,URINE 5.5 (5.0-8.0); UGLUCOSE NEGATIVE (NEGATIVE)
[2022-06-16 01:48] LABS: *AMPHETAMINE, URINE POSITIVE (NEGATIVE); *CANNABINOID, URINE POSITIVE (NEGATIVE); *COCCAINE, URINE NEGATIVE (NEGATIVE); *OPIATE, URINE NEGATIVE (NEGATIVE); *PHENCYCLIDINE SCREEN,URINE NEGATIVE (NEGATIVE)
--- NOTE | 2022-06-16 02:00 | NUR ---
Called [facility] to for voluntary psych admit.
--- NOTE | 2022-06-16 02:44 | NUR ---
Karla peralta [facility] called and informed me that the patient is accepted for admission.
--- NOTE | 2022-06-16 02:50 | NUR ---
Report given OBDULIO Cabrera. Admitting physician is Dr. Shah.
--- NOTE | 2022-06-16 03:24 | NUR ---
Set up pt transfer with [facility], eta [phone].
--- NOTE | 2022-06-16 07:36 | NUR ---
PT REFUSED TO BE TRANSFERED TO [facility]. PT DECIDED TO LEAVE HOSPITAL AMA. DR GONZALEZ EXPLAINED ALL RISKS OF LEAVING HOSPITAL AMA TO THE PT. PT VERBALISED FULL UNDERSTANDING. PT SIGNED AMA FORM AND LEFT [facility] ER BY TAXI. PT DID NOT SHOW ANY S/S OF DISTRES .
[2022-06-16 07:39] VITALS: BP 136/84
== END 2022-06-16 07:40 | disposition left against medical advice (07) ==
LOC: ER 21:51
DX: F41.9 Anxiety disorder, unspecified (principal); F10.20 Alcohol dependence, uncomplicated; Y90.1 Blood alcohol level of 20-39 mg/100 ml; R82.5 Elevated urine levels of drugs, medicaments and biological substances; Z53.29 Procedure and treatment not carried out because of patient's decision for other reasons; Z20.822 Contact with and (suspected) exposure to COVID-19; Z90.49 Acquired absence of other specified parts of digestive tract; F20.9 Schizophrenia, unspecified; Z59.00 Homelessness unspecified; G62.9 Polyneuropathy, unspecified
CPT/HCPCS: 36415; 84443; 85025; A4663; G0480; Q0162

== ENCOUNTER 2022-06-16 22:18 | Emergency (ER) | payer MEDICAID ==
[~2022-06-16] VITALS: Ht 170.2 cm; Wt 72.6 kg
[2022-06-16] MEDS ORDERED: CYANOCOBALAMIN 1000 MCG/ML VIAL IM ONE (23:30)
[2022-06-16] MEDS ORDERED: CYANOCOBALAMIN 1000 MCG/ML VIAL ONE (23:35)
[2022-06-17 01:45] VITALS: BP 132/80
== END 2022-06-17 01:46 | disposition home or self-care (01) ==
LOC: ER 22:32
DX: F10.20 Alcohol dependence, uncomplicated (principal); Z59.00 Homelessness unspecified; E53.8 Deficiency of other specified B group vitamins; F20.9 Schizophrenia, unspecified; G62.9 Polyneuropathy, unspecified; Z79.899 Other long term (current) drug therapy; Z90.49 Acquired absence of other specified parts of digestive tract
CPT/HCPCS: 99283; 96372; J3420; A4663